=== PATIENT | female | born 1965 | race Caucasian/White ===

== ENCOUNTER 2023-05-26 07:55 | Outpatient (OUT) | payer BC, SELFPAY ==
[2023-05-26 09:36] LABS: Alanine Aminotransferase 13 U/L (14-59); Albumin Level 3.4 g/dL (3.4-5.0); Alkaline Phosphatase 72 U/L (46-116); Anion Gap 11.5; Aspartate Amino Transferase 14 U/L (15-37); BUN Creatinine Ratio 15.8; Bilirubin Total 0.7 mg/dL (0.2-1.0); Calcium 8.8 mg/dL (8.5-10.1); Carbon Dioxide 27.5 mmol/L (21.0-32.0); Chloride 105 mmol/L (98-107); Chol HDL Ratio 3.2; Cholesterol 185 mg/dL (<=200); Estimated GFR (African America >60 (>=60); Estimated GFR (Non-African Ame >60 (>=60); Globulin 3.4 g/dL; Glucose 89 mg/dL (74-106); HDL Cholesterol 58 mg/dL (40-60); LDL Cholesterol Calculated 101.2 mg/dL; Sodium 140 mmol/L (136-145); Total Protein 6.8 g/dL (6.4-8.2); Triglycerides 129 mg/dL (<=150); VLDL CHOLESTEROL 25.8 mg/dL
== END 2023-05-26 07:56 | disposition home or self-care (01) ==
LOC: LAB 07:59
PROVIDERS: PCP Nurse Practitioner Family; Visit Provider Nurse Practitioner Family
DX: Z00.00 Encounter for general adult medical examination without abnormal findings (principal)
CPT/HCPCS: 36415; 80053; 80061